=== PATIENT | male | born 1990 | race Two or more races ===

== ENCOUNTER 2020-02-11 20:09 | Emergency (ER) | payer OTHER ==
[~2020-02-11] VITALS: Ht 167.6 cm; Wt 63.5 kg
[2020-02-11 20:10] VITALS: BP 144/95
--- NOTE | 2020-02-11 20:10 | NUR ---
ED Nurse Note: PT walked in to ED for C/O flu like S/Sx x 1 week. pt reports having fever but at triage is 98.3. denies recent travel.
[2020-02-11] MEDS ORDERED: GUAIFENESI100 MG/5 M ORAL (20:55)
[2020-02-11] MEDS ORDERED: CLARITIN-D 121 EAC1 ORAL (20:55)
[2020-02-11] MEDS ORDERED: TYLENOL EXTRA500 MG ORAL (20:55)
--- NOTE | 2020-02-11 20:55 | Emergency Room Report ---
History of Present Illness General Chief Complaint: Flu Like Symptoms Source: Patient Present Illness HPI 29-year-old male with no significant past medical history, afebrile, no smoking history here with significant other due to exposure to people with tested positive for coronavirus at a festival in [place] a few days ago. Patient reports her symptoms started 3 days ago. Has not returned to work since. Denies any chest pain shortness of breath. Denies fever and chills. Has not taken medication for symptom relief. Denies recent travel. COVID-19 risk:Contact w/high r: No COVID-19 risk:Travel to affect: No Has patient experienced garzon: Yes Coronavirus symptoms experienc: Cough, Flu-Like Symptoms Allergies: Coded Allergies: No Known Allergies (Unverified , 02/11/20) Patient History Past Medical History: see triage record Past Surgical History: none Pertinent Family History: none Immunizations: UTD Reviewed Nursing Documentation: PMH: Agreed; PSxH: Agreed Nursing Documentation-PMH Past Medical History: No Stated History Review of Systems All Other Systems: negative except mentioned in HPI Physical Exam Vital Signs Date Time Temp Pulse Resp B/P (MAP) Pulse Ox O2 Delivery O2 Flow Rate FiO2 02/11/20 20:06 98.2 80 19 144/95 (111) 98 Room Air Sp02 EP Interpretation: reviewed, normal General Appearance: no apparent distress, alert, GCS 15, non-toxic Head: normocephalic, atraumatic Eyes: bilateral eye normal inspection, bilateral eye PERRL ENT: hearing grossly normal, normal pharynx, no angioedema, normal voice Neck: full range of motion, supple/symm/no masses Respiratory: chest non-tender, lungs clear, normal breath sounds, no rhonchi, no retraction, no wheezing, speaking full sentences Cardiovascular #1: regular rate, rhythm, no edema, no murmur, normal capillary refill Gastrointestinal: normal bowel sounds, non tender, soft, non-distended, no guarding, no rebound Rectal: deferred Genitourinary: no CVA tenderness Musculoskeletal: back normal, normal range of motion, gait/station normal, non- tender Neurologic: alert, motor strength/tone normal, oriented x3, sensory intact, responsive, speech normal Psychiatric: judgement/insight normal, memory normal, mood/affect normal, no suicidal/homicidal ideation Skin: no rash Lymphatic: no adenopathy Medical Decision Making PA Attestation All my diagnosis and treatment plans were reviewed ad discussed with my supervising physician Dr. Regalado Diagnostic Impression: Primary Impression: Exposure to 2019 novel coronavirus ER Course 29-year-old male with no significant past medical history, afebrile, no smoking history here with significant other due to exposure to people with tested positive for coronavirus at a festival in [place] a few days ago. Patient reports her symptoms started 3 days ago. Has not returned to work since. Denies any chest pain shortness of breath. Denies fever and chills. Has not taken medication for symptom relief. Denies recent travel. Ddx considered but are not limited to: Coronavirus, strep pharyngitis, URI, tonsillitis, peritonsillar abscess, influneza Vital signs: are WNL, pt. is afebrile H&PE are most consistent with: Exposure to coronavirus ORDERS: Guaifenesin, Claritin, Tylenol ED INTERVENTIONS: None required at this time. DISCHARGE: At this time pt. is stable for d/c to home. Will provide printed patient care instructions, and any necessary prescriptions. Care plan and follow up instructions have been discussed with the patient prior to discharge. Take medication as directed, follow-up with your primary doctor, you need to stay home for self quarantine due to Covid 19 precautions for 14 days Last Vital Signs Date Time Temp Pulse Resp B/P (MAP) Pulse Ox O2 Delivery O2 Flow Rate FiO2 02/11/20 20:10 98.2 80 19 144/95 98 Room Air Disposition: HOME, SELF-CARE Condition: Stable Scripts Acetaminophen* (TYLENOL EXTRA STRENGTH*) 500 Mg Tablet 500 MG ORAL Q8H PRN for Prn Headache/Temp > 101, #30 TAB 0 Refills Prov: Mary Rocha 02/11/20 Loratadine/Pseudoephedrine (CLARITIN-D 12 HOUR TABLET) 1 Each Tab.er.12h 1 TAB ORAL EVERY 12 HOURS, #20 TAB Prov: Mary Rocha 02/11/20 Guaifenesin* (GUAIFENESIN*) 100 Mg/5 Ml Liquid 15 ML ORAL Q8H, #120 ML 0 Refills Prov: Mary Rocha 02/11/20 Patient Instructions: Upper Respiratory Infection, Adult, [id number] Additional Instructions: Take medication as directed, follow-up with your primary doctor, you need to stay home for self quarantine due to Covid 19 precautions for 14 days Mary Rocha Feb 11, 2020 20:55
[2020-02-11 21:06] VITALS: BP 140/88
--- NOTE | 2020-02-11 21:06 | NUR ---
ER DISCHARGE NOTE: Patient is cleared to be discharged per ERMD, pt is aox4, on room air, with stable vital signs. pt was given dc and prescription instructions, pt was able to verbalize understanding, pt id band removed without complications. pt is able to ambulate with steady gait. pt took all belongings.
== END 2020-02-11 21:06 | disposition home or self-care (01) ==
LOC: EDBD 20:09 → EMR 20:24
DX: R05 Cough (principal); Z20.828 Contact with and (suspected) exposure to other viral communicable diseases
CPT/HCPCS: 99282